=== PATIENT | female | born 1990 | race Caucasian/White ===

== ENCOUNTER → 2019-11-23 | Outpatient (CLI) | payer OTHER ==
[2019-11-23 07:40] LABS: BASOPHILS # (AUTO) 0.01 x10^3/uL (0-0.1); BASOPHILS % (AUTO) 0 % (0-1); EOSINOPHILS # (AUTO) 0.07 x10^3/uL (0-0.4); EOSINOPHILS % (AUTO) 2 % (1-7); LYMPHOCYTES # (AUTO) 1.15 x10^3/uL (1-3.4); LYMPHOCYTES % (AUTO) 36 % (22-44); MD NO; MEAN CORPUSCULAR HEMOGLOBIN 34.5 pg (27.0-34.8); MEAN CORPUSCULAR HGB CONC 33.9 g/dL (32.4-35.8); MEAN CORPUSCULAR VOLUME 101.7 fL (80-100); MEAN PLATELET VOLUME 6.5 fL (7.4-10.4); MONOCYTES % (AUTO) 9 % (2-9); NEUTROPHILS # (AUTO) 1.67 x10^3/uL (1.8-6.8); NEUTROPHILS % (AUTO) 52 % (42-75); PLATELET COUNT 258 x10^3/uL (130-400); RED BLOOD COUNT 4.31 x10^6/uL (3.82-5.3); RED CELL DISTRIBUTION WIDTH 12.4 % (9.6-15.2)
[2019-11-23 07:42] LABS: ALANINE AMINOTRANSFERASE 23 U/L (12-78); ALBUMIN 3.7 g/dL (3.4-5.0); ANION GAP 8 mmol/L (5-15); CALCIUM 8.4 mg/dL (8.5-10.1); CHLORIDE 107 mmol/L (98-107)
[2019-11-23 07:53] LABS: ALKALINE PHOSPHATASE 85 U/L (45-117); BILIRUBIN,TOTAL 0.4 mg/dL (0.2-1.0); CHOL/HDL RATIO 2.4; CHOLESTEROL, TOTAL 176 mg/dL (140-239); HDL CHOL % 42 % (28-40); HDL CHOLESTEROL (DIRECT) 74 mg/dL (40-60); LDL CHOLESTEROL,CALCULATED 92 mg/dL (54-169); LDL/HDL RATIO 1.2 (0.5-3.0); TRIGLYCERIDES 52 mg/dL (50-200); VLDL CHOLESTEROL 10 mg/dL (0-25)
== END | disposition home or self-care (01) ==
LOC: LAB 07:07
PROVIDERS: ATTEND Registered Nurse
DX: Z13.9 Encounter for screening, unspecified (principal); N91.1 Secondary amenorrhea
CPT/HCPCS: 36415; 80053; 80061; 82627; 83001; 83002; 83498; 83525; 84146; 84402; 84403; 84443; 85025

== ENCOUNTER → 2021-06-09 | Outpatient (CLI) | payer OTHER ==
[~2021-06-09] MED LIST: GADOTERATE 5 MMOL/10 ML VIAL ONE; LIDOCAINE 1%, 10ML ONE; OMNIPAQUE 300 MG/ML, 10ML VIAL ONE; OXYC5TAB98 PO; ROPivacaine/PF 0.2%, 10 ML ONE; TRIAMCINOLONE ACETONIDE 40 MG/ML, 1ML ONE; no home meds per pt
== END | disposition home or self-care (01) ==
LOC: RAD 07:37
PROVIDERS: ATTEND Physician Assistant
DX: M25.551 Pain in right hip (principal); S73.191A Other sprain of right hip, initial encounter; M84.351A Stress fracture, right femur, initial encounter for fracture; X58.XXXA Exposure to other specified factors, initial encounter; Y93.89 Activity, other specified; Y92.89 Other specified places as the place of occurrence of the external cause; Y99.8 Other external cause status
CPT/HCPCS: 27093; 73525; 73722; A9575; J2795; J3301; J3490; Q9967

== ENCOUNTER 2021-06-10 11:50 | Day surgery (SDC) | payer OTHER ==
[~2021-06-10] VITALS: Ht 182.9 cm; Wt 69.4 kg
[2021-06-10] MEDS ORDERED: LACTATED RINGERS 1,000 ML IV SCH (13:00)
[2021-06-10] MEDS ORDERED: CHLORHEXIDINE 15 ML UDC PO ONE (13:00)
[2021-06-10] MEDS ORDERED: CHLORHEXIDINE 15 ML UDC ONE (13:06)
[2021-06-10 13:20] VITALS: BP 123/76
[2021-06-10] MEDS ORDERED: no home meds per pt (13:27)
[2021-06-10] MEDS ORDERED: MIDAZOLAM 1 MG/ML, 2ML ONE (13:36)
[2021-06-10] MEDS ORDERED: FENTANYL PF 250 MCG/5ML ONE (13:37)
[2021-06-10] MEDS ORDERED: SCOPOLAMINE 1MG PATCH TD ONE (13:45)
[2021-06-10 13:51] LABS: HCG UR SG 1.032 (1.003-1.030)
[2021-06-10] MEDS ORDERED: BUPIVACAINE/PF 0.5% ONE (14:31)
[2021-06-10] MEDS ORDERED: EPINEPHRINE 1 MG/ML, 1ML ONE (14:31)
[2021-06-10] MEDS ORDERED: ROCURONIUM 10MG/ML,5ML ONE (14:55)
[2021-06-10] MEDS ORDERED: CEFAZOLIN 1,000 MG ONE (14:55)
[2021-06-10] MEDS ORDERED: SUCCINYLCHOLINE 20 MG/ML, 10ML ONE (14:55)
[2021-06-10] MEDS ORDERED: PROPOFOL 10 MG/ML, 20ML ONE (14:55)
[2021-06-10] MEDS ORDERED: DEXAMETHASONE 4 MG/ML, 1ML ONE (14:55)
[2021-06-10] MEDS ORDERED: ONDANSETRON 2MG/ML, 2ML ONE (14:55)
[2021-06-10] MEDS ORDERED: NEOSTIGMINE 1 MG/ML, 10ML ONE (14:55)
[2021-06-10] MEDS ORDERED: GLYCOPYRROLATE 0.2MG/1ML, 5ML ONE (14:55)
[2021-06-10] MEDS ORDERED: OXYC5TAB98 PO (15:01)
[2021-06-10] MEDS ORDERED: FENTANYL PF 100 MCG/2ML ONE ×2 (15:09→15:31)
[2021-06-10] MEDS ORDERED: KETOROLAC 30 MG/1 ML ONE (15:09)
[2021-06-10] MEDS: FENTANYL PF 100 MCG/2ML IV PRN ×4 (15:12→15:42)
[2021-06-10] MEDS ORDERED: ACETAMINOPHEN 650 MG/20.3 ML UDC ONE (15:16)
[2021-06-10] MEDS ORDERED: OXYcodone 5 MG/5 ML ORAL.SOL UDC ONE (15:17)
[2021-06-10] MEDS ORDERED: DIAZEPAM 5 MG/ML, 2ML ONE (15:24)
[2021-06-10] MEDS ORDERED: KETOROLAC 30 MG/1 ML IV PRN (15:30)
[2021-06-10] MEDS ORDERED: HYDROmorphone 2 MG/ML, 1ML IVPush PRN (15:30)
[2021-06-10] MEDS ORDERED: ACETAMINOPHEN 325 MG TABLET PO PRN (15:30)
[2021-06-10] MEDS ORDERED: MEPERIDINE/PF 25MG/0.5ML IVPush PRN (15:30)
[2021-06-10] MEDS ORDERED: OXYcodone 5 MG/5 ML ORAL.SOL UDC PO PRN (15:30)
[2021-06-10] MEDS ORDERED: DIAZEPAM 5 MG/ML, 2ML IVPush PRN (15:30)
[2021-06-10] MEDS ORDERED: PROMETHAZINE 25 MG/ML, 1ML IV PRN (15:30)
[2021-06-10] MEDS ORDERED: ALBUTEROL SULFATE 2.5 MG/3 ML NPPB PRN (15:30)
[2021-06-10] MEDS ORDERED: LABETALOL 5MG/ML, 20ML IV PRN (15:30)
[2021-06-10] MEDS ORDERED: hydrALAzine 20 MG/ML, 1ML IV PRN (15:30)
== END 2021-06-10 17:00 | disposition home or self-care (01) ==
LOC: OUT 11:50
PROVIDERS: ATTEND Orthopaedic Surgery
DX: S72.001A Fracture of unspecified part of neck of right femur, initial encounter for closed fracture (principal); Z79.899 Other long term (current) drug therapy; X50.1XXA Overexertion from prolonged static or awkward postures, initial encounter; Y93.B9 Activity, other involving muscle strengthening exercises; Y92.89 Other specified places as the place of occurrence of the external cause; Y99.8 Other external cause status
CPT/HCPCS: 27235; 73501; 81025; C1713; J0171; J0330; J0690; J1100; J1885; J2250; J2405; J2704; J2710; J3010; J3360; J7120; 76000